=== PATIENT | male | born 1960 | race Hispanic/Latino ===

== ENCOUNTER 2016-09-08 16:16 | Emergency (ER) | payer MEDICARE ==
[2016-09-08 16:34] VITALS: BP 140/99
[2016-09-08] MEDS ORDERED: NORCO 7.5/325 PO ONE (16:51)
[2016-09-08] MEDS ORDERED: TORADOL IM ONE (16:51)
[2016-09-08] MEDS ORDERED: FLEXERIL PO ONE (16:51)
--- NOTE | 2016-09-08 18:12 | Cat Scan Report ---
FINAL REPORT EXAM: CT LUMBAR SPINE WO CON HISTORY: fall/back pain TECHNIQUE: Spiral high-resolution unenhanced 1.25 millimeter axial images were obtained through the lumbar spine. Sagittal and coronal plane are reconstructions were performed. PRIORS: None. FINDINGS: Counting reference: Lumbosacral junction. For the purposes of this report, L4-L5 is considered the level of the iliac crest. Bone marrow/ Fracture: There is an acute fracture of the right-sided transverse process of T12 (coronal image 43). No evidence of a lytic or blastic process in the visualized spine. Bilateral facet joint degenerative changes at L4-L5 and L5-S1 are noted. alignment: Alignment is anatomic. T12-L1: Canal and foramina are patent. L1-L2: Canal and foramina are patent. L2-L3: Canal and foramina are patent. L3-L4: Canal and foramina are patent. L4-L5: Canal and foramina are patent. L5-S1: Canal and foramina are patent. Paraspinal soft tissues: The paraspinal soft tissues show no evidence for paravertebral hematoma or soft tissue mass. Sacrum and iliac wings: Visualized portions of the sacrum and iliac wings appear intact without fracture. The presacral soft tissues are normal in appearance. IMPRESSION: 1. Acute fracture of the right-sided transverse process of T12. 2. Mild facet joint degenerative changes bilaterally at L4 through S1.
--- NOTE | 2016-09-08 18:20 | Cat Scan Report ---
FINAL REPORT EXAM: CT THORACIC SPINE WO CON HISTORY: fall/back pain TECHNIQUE: Standard CT thoracic spine obtained at 1.25 millimeter axial increments. Coronal and sagittal reconstruction was also performed. PRIORS: CT L-spine 09/08/2016 FINDINGS: There is an acute fracture of the right transverse process of T12. I also cannot exclude a nondisplaced fracture involving the right transverse process of L1 distally (coronal image 33). However, I cannot confirm this on the coming exam CT L-spine. No compression fracture is noted. There is no evidence for paravertebral soft tissue swelling. Alignment is maintained. Large spurs anteriorly at T10-T11 are noted. IMPRESSION: Acute fracture of the right transverse process of T12. Possible nondisplaced acute fracture of the right transverse process of L1 distally as well.
--- NOTE | 2016-09-08 20:32 | XRay Report ---
FINAL REPORT EXAM: XR RIBS UNILAT 2V RT HISTORY: fall TECHNIQUE: PA view of the chest and 3 views of the right ribs PRIORS: CT T-spine 09/08/2016 FINDINGS: There is no evidence for acute rib fracture or other bony pathologic abnormality in the right ribs. Metallic hardware overlies the anterior 4th and 5th ribs on the left. On the chest film, the lungs are clear without evidence for infiltrate, effusion, or pneumothorax. The cardiomediastinal silhouette is normal. The fracture of the right T12 transverse process and possible fracture L1 transverse process to the right are difficult to visualize on these films. IMPRESSION: No acute abnormality in the right ribs or chest.
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
== END 2016-09-08 21:51 | disposition home or self-care (01) ==
LOC: ED 16:16
DX: S22.088A Other fracture of T11-T12 vertebra, initial encounter for closed fracture (principal); I10 Essential (primary) hypertension; E11.9 Type 2 diabetes mellitus without complications; K21.9 Gastro-esophageal reflux disease without esophagitis; Z87.891 Personal history of nicotine dependence; W11.XXXA Fall on and from ladder, initial encounter; Y93.89 Activity, other specified; Y99.8 Other external cause status; Y92.098 Other place in other non-institutional residence as the place of occurrence of the external cause
CPT/HCPCS: 71100; 72128; 72131; 96372; 99284; J1885